=== PATIENT | male | born 1945 | race Caucasian/White ===

== ENCOUNTER 2017-01-30 14:57 | Emergency (ER) | payer OTHER ==
--- NOTE | 2017-01-30 15:31 | Diag Imaging Result Document ---
PROCEDURE NAME: HEAD/C-SPINE W/O CONTRAST - 01/30/2017 CT HEAD AND C-SPINE WITHOUT CONTRAST: COMPARISON: None available. FINDINGS: HEAD: There is no discrete intracranial mass, mass effect, or intracranial hemorrhage. There is no evidence of acute infarct given the limited sensitivity of CT versus MRI. The surrounding soft tissues are essentially unremarkable. Calvaria is intact. C-SPINE: There is degenerative disk disease at several cervical levels that is generally fairly mild. However, it is most significant at C5-6 where there is a broad-based disk osteophyte complex causing at least moderate central stenosis. There is much milder central canal narrowing and mild foraminal narrowing at a few other levels related to degenerative changes. There is no evidence of fracture, subluxation, or intrinsic osseous lesion, otherwise. Surrounding soft tissues are essentially unremarkable. IMPRESSION: 1. No evidence of acute intracranial pathology. 2. Multilevel degenerative change as described but no evidence of fracture or other definite acute C-spine injury.
--- NOTE | 2017-01-30 15:41 | ED EKG INTERP ---
EKG Interpretation - EKG Time of EKG reading by physician:: 15:11 EKG Read and Signed by:: Chris Araujo EKG Interpretation (*Must complete 3 of following elements*): Abnormal Rate: 94 Rhythm: atrial fibrillation Comments: abnormal ECG Attestation - Scribe Verification/Attestation Scribe:: Myriam Mims Acting as Scribe for:: Chris Araujo Scribe documention review:: This chart was documented by a scribe and accurately reflects the service the provider performed and the decisions made by the provider.
--- NOTE | 2017-01-30 15:44 | Diag Imaging Result Document ---
PROCEDURE NAME: CHEST-PORTABLE - 01/30/2017 SINGLE FRONTAL RADIOGRAPH OF THE CHEST: COMPARISON: None available. FINDINGS: The lungs are grossly clear. There is no discrete pleural fluid collection or evidence of pneumothorax. The cardiomediastinal silhouette and upper airway are grossly unremarkable. IMPRESSION: No evidence of acute chest pathology.
[2017-01-30 15:52] LABS: MANUAL DIFF NEEDED? NO
[2017-01-30 15:56] LABS: BASO% 0.2 % (0.0-0.8); EOS# 0.34 X1000 (0.0-0.7); EOS% 3.6 % (0.0-10.0); HEMOGLOBIN 14.6 g/dL (14.0-18.0); IMM GRAN# 0.02 X1000 (0.0-0.04); IMM GRAN% 0.2 % (0.0-0.5); LYMPH# 2.28 X1000 (1.2-3.4); LYMPH% 24.1 % (20.5-51.1); MCH 30.5 PG (27-31); MONO# 0.82 X1000 (0.11-0.59); MONO% 8.6 % (1.7-9.3); MPV 9.6 FL (7.4-10.4); NEUT% 63.3 % (42.2-75.2); PLT 332 X1000 (130-400); RBC 4.78 XMIL (4.7-6.1)
[2017-01-30 16:17] LABS: INR 1.01; PROTIME 10.7 Seconds (9.2-11.7)
[2017-01-30 16:19] LABS: URINE CULTURE NEEDED? NO; URINE MICRO REVIEW NEEDED? NO; URINE SOURCE CLEAN CATCH
[2017-01-30 16:22] LABS: AGAP 14; ALBUMIN 3.8 g/dL (3.5-5.0); ALKALINE PHOSPHATASE 92 U/L (32-122); BUN 22 mg/dL (8-22); CALCIUM 8.6 mg/dL (8.8-10.2); CHLORIDE 98 mmol/L (98-107); CK PROFILE 156 U/L (24-204); COSMO 278; GOT 19 U/L (10-34); GPT 17 U/L (10-44); POTASSIUM 4.4 mmol/L (3.5-5.1); SODIUM 136 mmol/L (136-145); TCO2 24 mmol/L (25-35); TOTAL PROTEIN 6.2 g/dL (6.3-8.3)
--- NOTE | 2017-01-30 16:34 | PROVIDER DOCUMENTATION ---
HPI-Neurological Disorder <Gil Sarmiento - Last Filed: 01/30/17 21:09> - General Source: patient, family, EMS - History of Present Illness-Neuro Onset/Duration: reports: abrupt, 1/2 hour ago Context: reports: found unresponsive by family, head injury, falling Approximate time patient was last seen normal?: 15:00 Character of Altered Mental Status: reports: unresponsive (initially after fall/ syncope) New weakness or altered sensation location:: reports: none Associated Symptoms: reports: denies symptoms Similar Symptoms Previously?: No <Kae Pelaez - Last Filed: 01/30/17 21:37> - General Chief Complaint: Head Injury Stated Complaint: POSSIBLE STROKE Time Seen by Provider: 01/30/17 14:57 Allergies/Adverse Reactions: Patient Allergies Allergy/AdvReac Type Severity Reaction Status Date / Time No Known Allergies Allergy Verified 01/30/17 15:30 Home Medications: Home Medication List Medication Instructions Recorded Confirmed Last Taken Type ATORVAstatin [Lipitor] 40 mg PO QHS 01/30/17 01/30/17 01/29/17 20:00 History Apixaban [Eliquis] 5 mg PO BID 01/30/17 01/30/17 01/30/17 08:00 History Finasteride 5 mg PO DAILY 01/30/17 01/30/17 01/30/17 08:00 History Insulin Lispro [Humalog] 60 unit SQ DAILY 01/30/17 01/30/17 01/30/17 07:00 History Lisinopril 10 mg PO DAILY 01/30/17 01/30/17 01/30/17 08:00 History Metoprolol [Lopressor] 100 mg PO DAILY 01/30/17 01/30/17 01/30/17 08:00 History NPH, Human Insulin Isophane 45 unit SQ DAILY 01/30/17 01/30/17 01/30/17 08:00 History [Humulin N] - History of Present Illness-Neuro Nature of Presenting Problem: 71 yo insulin dependent Diabetic had syncopal episode and fell and hit his head on a cabinet and was initially unresponsive. EMS called . PT was unresponsive but gradually increasing alertness. Given narcan in transport. Oriented x1 , following commands on admit to Ed Moving all extremities with good strength ( Kae Pelaez) Review of Systems - Adult - REVIEW OF SYSTEMS - ADULT Constitutional: reports: no symptoms reported Eyes: reports: no symptoms reported Ears, Nose, Mouth & Throat: reports: no symptoms reported Cardiovascular: reports: no symptoms reported Respiratory: reports: no symptoms reported Gastrointestinal: reports: no symptoms reported Genitourinary: reports: no symptoms reported <Kae Pelaez - Last Filed: 01/30/17 21:37> Past History - Adult - PAST MEDICAL HISTORY-ADULT Review of Records: reports: Old Records Reviewed, Nursing Assessment Review, Medications Reviewed Major Childhood Illnesses: reports: history unknown Cardiovascular: reports: A-Fib, HTN Respiratory: reports: denies history Gastrointestinal: reports: denies history Genitourinary: reports: denies history Musculoskeletal: reports: denies history Neurological: reports: CVA <Kae Pelaez - Last Filed: 01/30/17 21:37> Physical Exam- Neurological - Physical Exam-Neuro Initial Vital Signs Reviewed: Yes General Appearance: alert, no apparent distress, other (confused, oriented x 1 on initial evaluation, moving all 4 extremities with good strength) Eye Exam: bilateral eye: normal inspection, PERRL, EOMI HENMT: moist mucous membranes, normal ENT inspection Head Injury: other (abrasion upper occipital scalp with minimal blood) Neck: non-tender Respiratory: chest non-tender, lungs clear, normal breath sounds Cardiovascular: no edema, no gallop, no murmur, irregularly irregular Abdominal Exam: normal bowel sounds, non tender, soft, no organomegaly Lymphatic: no adenopathy Extremity: normal range of motion strip tank tender Exam: normal hearing, normal speech, PERRL Motor/Sensory: no motor deficit, no sensory deficit Neurologic: grossly normal, no motor/sensory deficits Integumentary: normal color, normal turgor, warm/dry, abrasion(s) (scalp only) Psych/Mental Status: normal mood/affect, normal thought content, normal thought process <Kae Pelaez - Last Filed: 01/30/17 21:37> Progress - REASSESSMENT Reassessment #1 Time Reassessed: 21:10 (hospitalist make us aware pt now decline admision and will sign ama) Status: improving - CONSULTS/PCP/HOSPITALIST Notification #1 *Consult/PCP/Hospitalist*: dr south Time Discussed: 08:00 Consult Disposition: Will see in ED <TorstenAyaan - Last Filed: 01/30/17 21:09> - EKG 1 Time of EKG reading by physician:: 15:30 EKG Read and Signed by:: Kae Pelaez EKG Interpretation (*Must complete 3 of following elements*): Abnormal Rate: 94 Rhythm: atrial fibrillation [place]: normal - XRAY 2 XRAY Study: Chest (no acute change) - CT/MRI 1 CT Study: Head, Neck (no intracranial acute process, no acute c spine fx) - CONSULTS/PCP/HOSPITALIST Notification #1 *Consult/PCP/Hospitalist*: Dr South Time Discussed: 18:45 Consult Disposition: Will see in ED - CHANGE OF SHIFT REPORT (ED Provider) Tentative Impression of Patient: sycope, head injury with prolonged LOC, elevated lactate <Kae Pelaez - Last Filed: 01/30/17 21:37> - PLAN OF CARE/RESULTS Progress/Plan/Lab Results: Laboratory Tests 01/30/17 01/30/17 01/30/17 15:33 15:33 15:33 WBC 9.48 RBC 4.78 Hgb 14.6 Hct 43.0 MCV 90.0 MCH 30.5 MCHC 34.0 RDW Std Deviation 12.5 Plt Count 332 MPV 9.6 Immature Gran % (Auto) 0.2 Neut % (Auto) 63.3 Lymph % (Auto) 24.1 Drew % (Auto) 8.6 Eos % (Auto) 3.6 Baso % (Auto) 0.2 Immature Gran # (Auto) 0.02 Neut # (Auto) 6.00 Lymph # (Auto) 2.28 Drew # (Auto) 0.82 H Eos # (Auto) 0.34 Baso # (Auto) 0.02 PT INR PTT (Actin FS) Sodium 136 Potassium 4.4 Chloride 98 Carbon Dioxide 24 L Anion Gap 14 BUN 22 Creatinine 0.9 Estimated GFR/1.73 m2 > 60 BUN/Creatinine Ratio 24 Glucose 143 H Calculated Osmolality 278 Calcium 8.6 L Total Bilirubin 0.40 AST 19 ALT 17 Alkaline Phosphatase 92 Creatine Kinase 156 Troponin T Total Protein 6.2 L Albumin 3.8 Globulin 2.4 Albumin/Globulin Ratio 1.6 Plasma Lactate Urine Source Urine Color Urine Turbidity Urine pH Ur Specific Ullin Urine Protein Ur Glucose (Stick) Ur Ketones (Stick) Urine Blood Urine Nitrite Urine Bilirubin Urobilinogen Dipstick Urine Leukocytes Urine WBC (Auto) Urine RBC (Auto) U Epithel Cells (Auto) Urine Bacteria (Auto) Urine Opiates Screen Ur Oxycodone Screen Ur Methadone, Qual Ur Barbiturates Screen Ur Phencyclidine Scrn Ur Amphetamines Screen U Benzodiazepines Scrn Urine Cocaine Screen U Cannabinoids Screen Plasma/Serum Ethyl Alc 01/30/17 01/30/17 01/30/17 15:33 15:33 16:05 WBC RBC Hgb Hct MCV MCH MCHC RDW Std Deviation Plt Count MPV Immature Gran % (Auto) Neut % (Auto) Lymph % (Auto) Drew % (Auto) Eos % (Auto) Baso % (Auto) Immature Gran # (Auto) Neut # (Auto) Lymph # (Auto) Drew # (Auto) Eos # (Auto) Baso # (Auto) PT 10.7 INR 1.01 PTT (Actin FS) 18.8 L Sodium Potassium Chloride Carbon Dioxide Anion Gap BUN Creatinine Estimated GFR/1.73 m2 BUN/Creatinine Ratio Glucose Calculated Osmolality Calcium Total Bilirubin AST ALT Alkaline Phosphatase Creatine Kinase Troponin T < 0.010 Total Protein Albumin Globulin Albumin/Globulin Ratio Plasma Lactate 2.9 H Urine Source Urine Color Urine Turbidity Urine pH Ur Specific Ullin Urine Protein Ur Glucose (Stick) Ur Ketones (Stick) Urine Blood Urine Nitrite Urine Bilirubin Urobilinogen Dipstick Urine Leukocytes Urine WBC (Auto) Urine RBC (Auto) U Epithel Cells (Auto) Urine Bacteria (Auto) Urine Opiates Screen Ur Oxycodone Screen Ur Methadone, Qual Ur Barbiturates Screen Ur Phencyclidine Scrn Ur Amphetamines Screen U Benzodiazepines Scrn Urine Cocaine Screen U Cannabinoids Screen Plasma/Serum Ethyl Alc 01/30/17 01/30/17 01/30/17 16:05 16:05 17:43 WBC RBC Hgb Hct MCV MCH MCHC RDW Std Deviation Plt Count MPV Immature Gran % (Auto) Neut % (Auto) Lymph % (Auto) Drew % (Auto) Eos % (Auto) Baso % (Auto) Immature Gran # (Auto) Neut # (Auto) Lymph # (Auto) Drew # (Auto) Eos # (Auto) Baso # (Auto) PT INR PTT (Actin FS) Sodium Potassium Chloride Carbon Dioxide Anion Gap BUN Creatinine Estimated GFR/1.73 m2 BUN/Creatinine Ratio Glucose Calculated Osmolality Calcium Total Bilirubin AST ALT Alkaline Phosphatase Creatine Kinase Troponin T Total Protein Albumin Globulin Albumin/Globulin Ratio Plasma Lactate 2.2 Urine Source CLEAN CATCH Urine Color YELLOW Urine Turbidity CLEAR Urine pH 6.0 Ur Specific Ullin 1.019 Urine Protein 50 A Ur Glucose (Stick) NEGATIVE Ur Ketones (Stick) TRACE A Urine Blood NEGATIVE Urine Nitrite NEGATIVE Urine Bilirubin NEGATIVE Urobilinogen Dipstick NORMAL Urine Leukocytes NEGATIVE Urine WBC (Auto) <10 Urine RBC (Auto) <10 U Epithel Cells (Auto) <10 Urine Bacteria (Auto) NEGATIVE Urine Opiates Screen NONE DETECTED Ur Oxycodone Screen NONE DETECTED Ur Methadone, Qual NONE DETECTED Ur Barbiturates Screen NONE DETECTED Ur Phencyclidine Scrn NONE DETECTED Ur Amphetamines Screen NONE DETECTED U Benzodiazepines Scrn NONE DETECTED Urine Cocaine Screen NONE DETECTED U Cannabinoids Screen NONE DETECTED Plasma/Serum Ethyl Alc Orders Category Date Time Status Blood Glucose Finger Stick [FSBS/Accucheck Result] NOW Care 01/30/17 18:53 Active Cardiac Monitoring DIRECTED Care 01/30/17 15:13 Active Finger Stick Blood Sugar (ED) DIRECTED Care 01/30/17 15:13 Active Oxygen Therapy- ED Nursing DIRECTED Care 01/30/17 15:13 Active Saline Loc NOW Care 01/30/17 15:13 Active CHEST-PORTABLE [RAD] Stat Exams 01/30/17 15:14 Completed HEAD/C-SPINE W/O CONTRAST [CT] Stat Exams 01/30/17 14:59 Completed ALCOHOL BLOOD Stat Lab 01/30/17 15:33 Completed CBC WITH ELECTRONIC DIFF [HEME] Stat Lab 01/30/17 15:33 Completed CK PROFILE [SP CHEM] Stat Lab 01/30/17 15:33 Completed COMPREHENSIVE METABOLIC PANEL [CHEM] Stat Lab 01/30/17 15:33 Completed LACTATE, PLASMA [CHEM] Stat Lab 01/30/17 16:05 Completed LACTATE, PLASMA [CHEM] Stat Lab 01/30/17 17:43 Completed PROTIME WITH INR [COAG] Stat Lab 01/30/17 15:33 Completed PTT [COAG] Stat Lab 01/30/17 15:33 Completed TROPONIN T Stat Lab 01/30/17 15:33 Completed URINALYSIS W/POSS RFLX CULT [URINALYSIS] Stat Lab 01/30/17 16:05 Completed URINE DRUG SCREEN Stat Lab 01/30/17 16:05 Completed Diphtheria/Tetanus Adult Med 01/30/17 18:53 Discontinued 0.5 ml IM .ONCE ONE Pulse Oximetry Stat Oth 01/30/17 15:13 Completed EKG [EKG] Stat Ther 01/30/17 15:13 Ordered Vital Signs Temp Pulse Resp BP Pulse Ox 01/30/17 17:59 86 20 163/109 94 L 01/30/17 15:20 98.2 F 95 H 16 143/90 95 No Known Allergies Allergy (Verified 01/30/17 15:30) ATORVAstatin [Lipitor] 40 mg PO QHS 01/30/17 Apixaban [Eliquis] 5 mg PO BID 01/30/17 Finasteride 5 mg PO DAILY 01/30/17 Insulin Lispro [Humalog] 60 unit SQ DAILY 01/30/17 Lisinopril 10 mg PO DAILY 01/30/17 Metoprolol [Lopressor] 100 mg PO DAILY 01/30/17 NPH, Human Insulin Isophane [Humulin N] 45 unit SQ DAILY 01/30/17 Laboratory 01/30/17 01/30/17 01/30/17 17:43 16:05 16:05 WBC RBC Hgb Hct MCV MCH MCHC RDW Std Deviation Plt Count MPV Immature Gran % (Auto) Neut % (Auto) Lymph % (Auto) Drew % (Auto) Eos % (Auto) Baso % (Auto) Immature Gran # (Auto) Neut # (Auto) Lymph # (Auto) Drew # (Auto) Eos # (Auto) Baso # (Auto) PT INR PTT (Actin FS) Sodium Potassium Chloride Carbon Dioxide Anion Gap BUN Creatinine Estimated GFR/1.73 m2 BUN/Creatinine Ratio Glucose Calculated Osmolality Calcium Total Bilirubin AST ALT Alkaline Phosphatase Creatine Kinase Troponin T Total Protein Albumin Globulin Albumin/Globulin Ratio Plasma Lactate 2.2 Urine Source CLEAN CATCH Urine Color YELLOW Urine Turbidity CLEAR Urine pH 6.0 Ur Specific Ullin 1.019 Urine Protein 50 A Ur Glucose (Stick) NEGATIVE Ur Ketones (Stick) TRACE A Urine Blood NEGATIVE Urine Nitrite NEGATIVE Urine Bilirubin NEGATIVE Urobilinogen Dipstick NORMAL Urine Leukocytes NEGATIVE Urine WBC (Auto) <10 Urine RBC (Auto) <10 U Epithel Cells (Auto) <10 Urine Bacteria (Auto) NEGATIVE Urine Opiates Screen NONE DETECTED Ur Oxycodone Screen NONE DETECTED Ur Methadone, Qual NONE DETECTED Ur Barbiturates Screen NONE DETECTED Ur Phencyclidine Scrn NONE DETECTED Ur Amphetamines Screen NONE DETECTED U Benzodiazepines Scrn NONE DETECTED Urine Cocaine Screen NONE DETECTED U Cannabinoids Screen NONE DETECTED Plasma/Serum Ethyl Alc 01/30/17 01/30/17 01/30/17 16:05 15:33 15:33 WBC RBC Hgb Hct MCV MCH MCHC RDW Std Deviation Plt Count MPV Immature Gran % (Auto) Neut % (Auto) Lymph % (Auto) Drew % (Auto) Eos % (Auto) Baso % (Auto) Immature Gran # (Auto) Neut # (Auto) Lymph # (Auto) Drew # (Auto) Eos # (Auto) Baso # (Auto) PT 10.7 INR 1.01 PTT (Actin FS) 18.8 L Sodium Potassium Chloride Carbon Dioxide Anion Gap BUN Creatinine Estimated GFR/1.73 m2 BUN/Creatinine Ratio Glucose Calculated Osmolality Calcium Total Bilirubin AST ALT Alkaline Phosphatase Creatine Kinase Troponin T < 0.010 Total Protein Albumin Globulin Albumin/Globulin Ratio Plasma Lactate 2.9 H Urine Source Urine Color Urine Turbidity Urine pH Ur Specific Ullin Urine Protein Ur Glucose (Stick) Ur Ketones (Stick) Urine Blood Urine Nitrite Urine Bilirubin Urobilinogen Dipstick Urine Leukocytes Urine WBC (Auto) Urine RBC (Auto) U Epithel Cells (Auto) Urine Bacteria (Auto) Urine Opiates Screen Ur Oxycodone Screen Ur Methadone, Qual Ur Barbiturates Screen Ur Phencyclidine Scrn Ur Amphetamines Screen U Benzodiazepines Scrn Urine Cocaine Screen U Cannabinoids Screen Plasma/Serum Ethyl Alc 01/30/17 01/30/17 01/30/17 15:33 15:33 15:33 WBC 9.48 RBC 4.78 Hgb 14.6 Hct 43.0 MCV 90.0 MCH 30.5 MCHC 34.0 RDW Std Deviation 12.5 Plt Count 332 MPV 9.6 Immature Gran % (Auto) 0.2 Neut % (Auto) 63.3 Lymph % (Auto) 24.1 Drew % (Auto) 8.6 Eos % (Auto) 3.6 Baso % (Auto) 0.2 Immature Gran # (Auto) 0.02 Neut # (Auto) 6.00 Lymph # (Auto) 2.28 Drew # (Auto) 0.82 H Eos # (Auto) 0.34 Baso # (Auto) 0.02 PT INR PTT (Actin FS) Sodium 136 Potassium 4.4 Chloride 98 Carbon Dioxide 24 L Anion Gap 14 BUN 22 Creatinine 0.9 Estimated GFR/1.73 m2 > 60 BUN/Creatinine Ratio 24 Glucose 143 H Calculated Osmolality 278 Calcium 8.6 L Total Bilirubin 0.40 AST 19 ALT 17 Alkaline Phosphatase 92 Creatine Kinase 156 Troponin T Total Protein 6.2 L Albumin 3.8 Globulin 2.4 Albumin/Globulin Ratio 1.6 Plasma Lactate Urine Source Urine Color Urine Turbidity Urine pH Ur Specific Ullin Urine Protein Ur Glucose (Stick) Ur Ketones (Stick) Urine Blood Urine Nitrite Urine Bilirubin Urobilinogen Dipstick Urine Leukocytes Urine WBC (Auto) Urine RBC (Auto) U Epithel Cells (Auto) Urine Bacteria (Auto) Urine Opiates Screen Ur Oxycodone Screen Ur Methadone, Qual Ur Barbiturates Screen Ur Phencyclidine Scrn Ur Amphetamines Screen U Benzodiazepines Scrn Urine Cocaine Screen U Cannabinoids Screen Plasma/Serum Ethyl Alc (Kae Pelaez) Departure - Departure Time of Disposition Order: 21:09 Certified Medical Emergency: Emergent <Gil Sarmiento - Last Filed: 01/30/17 21:09> - Departure Time of Disposition Order: 18:45 Certified Medical Emergency: Emergent <Kae Pelaez - Last Filed: 01/30/17 21:37> - Departure DIAGNOSIS: Syncope, Head injury, Atrial fibrillation, Diabetes Disposition: AGAINST MEDICAL ADVICE 07 Condition: Fair Additional Instructions: Please return to the ED if you have any new or worsening symptoms. Follow up with PCP. ED Follow Up Instructions: You have been treated by a care provider in the Emergency Department. These instructions are being provided to you so you can have an understanding of how to care for yourself upon discharge. Upon discharge from the Emergency Department, you are responsible for making arrangements for follow-up care by a physician of your choice. Take all prescribed medications as directed. Return to the Emergency Department immediately for any new or worsening symptoms. You may call the Physician Referral phone number at [phone] to obtain a list of Physicians who are taking new patients. Referrals: Ivan Solis MD [Primary Care Provider] - Instructions: Diabetes and Standards of Medical Care, Head Injury, Adult, Easy- to-Read, Discharge Against Medical Advice, Atrial Fibrillation, [id number], Syncope, [id number], Diabetes Mellitus and Food Physician Attestation
[2017-01-30 16:35] LABS: BILIRUBIN URINE NEGATIVE (NEGATIVE); BLOOD URINE NEGATIVE (NEGATIVE); COLOR YELLOW; GLUCOSE URINE NEGATIVE (NEGATIVE); LEUKOCYTES URINE NEGATIVE (NEGATIVE); NITRITE URINE NEGATIVE (NEGATIVE); PROTEIN URINE 50 mg/dL (NEGATIVE); SP GRAVITY URINE 1.019; TURBIDITY URINE CLEAR (CLEAR); UROBILINOGEN URINE NORMAL (NORMAL)
[2017-01-30 16:37] LABS: UR EPITHELIAL CELLS <10 /HPF (<10); URINE BACTERIA NEGATIVE /HPF; URINE RBC <10 /HPF (<10); URINE WBC <10 /HPF (<10)
[2017-01-30 16:52] LABS: UR AMPHETAMINES QUAL NONE DETECTED (NONE DETECT); UR BARBITUATES QUAL NONE DETECTED (NONE DETECT); UR BENZODIAZEPIN QUAL NONE DETECTED (NONE DETECT); UR CANNABINOIDS QUAL NONE DETECTED (NONE DETECT); UR COCAINE QUAL NONE DETECTED (NONE DETECT); UR METHADONE QUAL NONE DETECTED (NONE DETECT); UR OPIATES QUAL NONE DETECTED (NONE DETECT); UR OXYCODONE QUAL NONE DETECTED (NONE DETECT); UR PCP QUAL NONE DETECTED (NONE DETECT)
[2017-01-30] MEDS ORDERED: DIPHTHERIA/TETANUS ADULT IM ONE (18:53)
[2017-01-30 21:22] VITALS: BP 140/88
[2017-01-30 21:54] LABS: PTT 18.8 Seconds (22.0-36.0)
--- NOTE | 2017-01-31 06:07 | EKG Report ---
Test Performed on : 01/30/2017 3:11:24 PM Test Reason : AMS Blood Pressure : / mmHG Vent. Rate : 094 BPM Atrial Rate : 227 BPM P-R Int : 000 ms QRS Dur : 080 ms QT Int : 342 ms P-R-T Axes : 000 056 066 degrees QTc Int : 427 ms Atrial fibrillation. Abnormal ECG No previous ECGs available Unconfirmed Result
== END 2017-01-30 21:51 | disposition left against medical advice (07) ==
LOC: EDBD → ED 14:57
DX: S00.01XA Abrasion of scalp, initial encounter (principal); R55 Syncope and collapse; I48.91 Unspecified atrial fibrillation; E11.9 Type 2 diabetes mellitus without complications; R94.31 Abnormal electrocardiogram [ECG] [EKG]; R41.0 Disorientation, unspecified; I10 Essential (primary) hypertension; Z79.01 Long term (current) use of anticoagulants; Z79.899 Other long term (current) drug therapy; Z79.4 Long term (current) use of insulin; Z23 Encounter for immunization; Z86.73 Personal history of transient ischemic attack (TIA), and cerebral infarction without residual deficits; W18.30XA Fall on same level, unspecified, initial encounter; W22.09XA Striking against other stationary object, initial encounter
CPT/HCPCS: 70450; 71010; 72125; 80053; 81001; 82550; 82948; 83605; 84484; 85025; 85610; 85730; 90714; 93005; G0480; 80320; 80324; 80345; 80346; 80349; 80353; 80358; 80361; 80365; 83992

== ENCOUNTER 2017-07-24 11:50 | Inpatient (IN) ==
[2017-07-24 12:22] LABS: MANUAL DIFF NEEDED? NO
[2017-07-24 12:25] LABS: BASO% 0.2 % (0.0-0.8); EOS# 0.13 X1000 (0.0-0.7); EOS% 1.5 % (0.0-10.0); HEMATOCRIT 42.2 % (42.0-52.0); HEMOGLOBIN 14.3 g/dL (14.0-18.0); LYMPH# 3.04 X1000 (1.2-3.4); LYMPH% 35.1 % (20.5-51.1); MCH 31.3 PG (27-31); MCHC 33.9 g/dL (33-37); MCV 92.3 FL (81-99); MONO% 9.2 % (1.7-9.3); MPV 10.2 FL (7.4-10.4); PLT 239 X1000 (130-400); RBC 4.57 XMIL (4.7-6.1)
--- NOTE | 2017-07-24 12:31 | Diag Imaging Result Doc PS360 ---
CT HEAD W/O CONTRAST - 07/24/2017 INDICATION: altered mental status TECHNIQUE: A CT dose reduction protocol was used. COMPARISON: 01/30/2017 FINDINGS: There is a stable area of old encephalomalacia at the left cerebral hemisphere. No intracranial mass or hemorrhage. The skull is intact. The sinuses are clear. IMPRESSION: No acute disease or change from prior. Electronically signed by Rommel Boothe 07/24/2017 12:28 PM
[2017-07-24 12:48] LABS: AGAP 11; ALKALINE PHOSPHATASE 84 U/L (32-122); BUN 19 mg/dL (8-22); CHLORIDE 103 mmol/L (98-107); COSMO 286; GOT 25 U/L (10-34); GPT 18 U/L (10-44); POTASSIUM 4.2 mmol/L (3.5-5.1); SODIUM 143 mmol/L (136-145); TCO2 29 mmol/L (25-35); TOTAL BILIRUBIN 0.49 mg/dL (0.20-1.00); TOTAL PROTEIN 6.2 g/dL (6.3-8.3)
--- NOTE | 2017-07-24 15:53 | Diag Imaging Result Doc PS360 ---
CHEST-2 VIEWS - 07/24/2017 INDICATION: altered mental status TECHNIQUE: COMPARISON: 01/30/2017 FINDINGS: The lungs are normally expanded and clear. Heart size and mediastinal contours are normal. No pneumothorax or pleural effusion. IMPRESSION: Negative exam. Electronically signed by Rommel Boothe 07/24/2017 3:50 PM
[2017-07-24] MEDS: HUMALOG SUBQ SCH ×2 (18:28→21:45)
[2017-07-24 19:17] LABS: CK INDEX 2.3 (0.0-2.5); CK-MB 5.76 ng/mL (0.0-5.0)
[2017-07-24] MEDS ORDERED: TAMBOCOR PO SCH (21:00)
[2017-07-24] MEDS: ELIQUIS PO SCH (21:45)
[2017-07-24] MEDS: LOPRESSOR PO SCH (21:45)
[2017-07-24] MEDS: LIPITOR PO SCH (21:45)
[2017-07-24 22:08] LABS: INR 1.02; PROTIME 10.7 Seconds (9.2-11.7)
[2017-07-24] MEDS: TAMBOCOR PO SCH (22:12)
[2017-07-25 06:29] LABS: CK INDEX 1.9 (0.0-2.5); CK-MB 5.36 ng/mL (0.0-5.0)
[2017-07-25] MEDS: HUMALOG SUBQ SCH ×5 (07:02→20:22)
[2017-07-25 07:06] LABS: HEMOGLOBIN 13.8 g/dL (14.0-18.0); MCHC 33.7 g/dL (33-37); MCV 92.1 FL (81-99); MPV 10.3 FL (7.4-10.4); RBC 4.45 XMIL (4.7-6.1)
[2017-07-25 07:22] LABS: AGAP 12; ALBUMIN 3.6 g/dL (3.5-5.0); ALKALINE PHOSPHATASE 87 U/L (32-122); BUN 20 mg/dL (8-22); CALCIUM 8.1 mg/dL (8.8-10.2); CHLORIDE 100 mmol/L (98-107); COSMO 280; GOT 22 U/L (10-34); GPT 17 U/L (10-44); POTASSIUM 4.5 mmol/L (3.5-5.1); SODIUM 138 mmol/L (136-145); TCO2 26 mmol/L (25-35); TOTAL BILIRUBIN 1.14 mg/dL (0.20-1.00); TOTAL PROTEIN 6.3 g/dL (6.3-8.3)
[2017-07-25] MEDS ORDERED: LOPRESSOR PO SCH (09:00)
[2017-07-25] MEDS: LOPRESSOR PO SCH ×2 (10:13→20:22)
[2017-07-25] MEDS: PRINIVIL PO SCH (10:13)
[2017-07-25] MEDS: ELIQUIS PO SCH ×2 (10:14→20:22)
[2017-07-25] MEDS: PROSCAR PO SCH (10:14)
[2017-07-25] MEDS: TAMBOCOR PO SCH ×2 (10:14→20:23)
[2017-07-25] MEDS: LIPITOR PO SCH (20:22)
[2017-07-26] MEDS: HUMALOG SUBQ SCH ×4 (06:11→20:39)
[2017-07-26 07:01] LABS: MANUAL DIFF NEEDED? NO
[2017-07-26 07:11] LABS: BASO% 0.1 % (0.0-0.8); EOS# 0.15 X1000 (0.0-0.7); EOS% 1.7 % (0.0-10.0); HEMATOCRIT 43.9 % (42.0-52.0); LYMPH# 1.91 X1000 (1.2-3.4); LYMPH% 21.8 % (20.5-51.1); MCH 30.6 PG (27-31); MCHC 34.2 g/dL (33-37); MCV 89.6 FL (81-99); MONO# 0.61 X1000 (0.11-0.59); MPV 10.4 FL (7.4-10.4); NEUT% 69.4 % (42.2-75.2); PLT 250 X1000 (130-400)
[2017-07-26 07:33] LABS: AGAP 11; ALBUMIN 4.2 g/dL (3.5-5.0); ALKALINE PHOSPHATASE 96 U/L (32-122); BUN 25 mg/dL (8-22); CALCIUM 9.3 mg/dL (8.8-10.2); CHLORIDE 100 mmol/L (98-107); COSMO 289; GOT 24 U/L (10-34); GPT 20 U/L (10-44); IRON SATURATION 58 %; POTASSIUM 4.5 mmol/L (3.5-5.1); SODIUM 137 mmol/L (136-145); TCO2 26 mmol/L (25-35); TIBC 257 ug/dL; TOTAL BILIRUBIN 1.32 mg/dL (0.20-1.00); TOTAL IRON 150 ug/dL (53-167); TOTAL PROTEIN 6.4 g/dL (6.3-8.3); UNBOUND IRON 107 ug/dL (112-346)
[2017-07-26 07:53] LABS: FERRITIN 192 ng/mL (30-400)
[2017-07-26] MEDS ORDERED: HUMULIN N SUBQ SCH (09:00)
--- NOTE | 2017-07-26 09:05 | Diag Imaging Result Doc PS360 ---
EXAM: MRI BRAIN W W/O CONTRAST - 07/26/2017 HISTORY: stroke TECHNIQUE: Without and with contrast COMPARISON: CT head of 07/24/2017 FINDINGS: There are areas of encephalomalacia and gliosis compatible with old infarcts at the posterior temporal lobe and posterior parietal lobe on the left. The diffusion weighted images show no areas of restricted diffusion (no evidence of acute infarct). There is no evidence of hemorrhage, mass effect, midline shift, or hydrocephalus. There is mild ventricular asymmetry compatible with normal variation. There is no abnormal enhancement identified. 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 No visible acute intracranial abnormality. Electronically signed by Harry Solis 07/26/2017 9:02 AM
[2017-07-26] MEDS: ELIQUIS PO SCH ×2 (09:07→20:26)
[2017-07-26] MEDS: LOPRESSOR PO SCH ×2 (09:07→20:28)
[2017-07-26] MEDS: TAMBOCOR PO SCH ×2 (09:07→20:28)
[2017-07-26] MEDS: PROSCAR PO SCH (09:07)
[2017-07-26] MEDS: PRINIVIL PO SCH (09:07)
--- NOTE | 2017-07-26 09:13 | Diag Imaging Result Doc PS360 ---
EXAM: MRA BRAIN W/O CONTRAST - 07/25/2017 HISTORY: R/O stroke TECHNIQUE: Without contrast. [id number] MR angiogram of the intracranial circulation with reconstructed 3-D rotating MIP images obtained. COMPARISON: None. 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 The A2 segment of the right anterior cerebral artery appears to receive most of its supply from the left. The anterior communicating artery. The A2 segment right anterior cerebral artery is generally small in caliber beyond its proximal portion. There is no other major intracranial arterial occlusion identified. There is a questionable tiny (2 mm) aneurysm arising at the proximal A2 segment left anterior cerebral artery, but this could be artifactual related tortuosity. There is no large aneurysm identified. 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 The A2 segment right anterior cerebral artery is generally small in caliber along its proximal portion. Questionable tiny (2 mm) aneurysm arising at proximal A2 segment left anterior cerebral artery versus artifact from tortuosity. Electronically signed by Harry Solis 07/26/2017 9:11 AM
--- NOTE | 2017-07-26 09:15 | Diag Imaging Result Doc PS360 ---
EXAM: MRA NECK W/CONT - 07/25/2017 HISTORY: R/O stroke TECHNIQUE: With contrast. Coronal and reconstructed 3-D rotating MIP images of the carotid circulation in the neck are obtained. COMPARISON: None. FINDINGS: There is no carotid stenosis identified on the right. There is no carotid stenosis identified on the left. The bilateral vertebral arteries are patent. IMPRESSION: No evidence of carotid stenosis on the right nor the left. Electronically signed by Harry Solis 07/26/2017 9:13 AM
[2017-07-26] MEDS: KEPPRA PO SCH ×2 (11:51→20:28)
[2017-07-26] MEDS ORDERED: INSULIN PEN NEEDLES ONE (15:08)
[2017-07-26] MEDS: LIPITOR PO SCH (20:26)
[2017-07-26] MEDS ORDERED: LANTUS SUBQ SCH (21:00)
[2017-07-27] MEDS: HUMALOG SUBQ SCH ×4 (06:19→15:46)
[2017-07-27 07:50] LABS: AGAP 13; BUN 26 mg/dL (8-22); CALCIUM 8.8 mg/dL (8.8-10.2); CHLORIDE 102 mmol/L (98-107); COSMO 281; POTASSIUM 4.5 mmol/L (3.5-5.1); SODIUM 137 mmol/L (136-145); TCO2 22 mmol/L (25-35)
[2017-07-27] MEDS: KEPPRA PO SCH (08:44)
[2017-07-27] MEDS: PROSCAR PO SCH (08:44)
[2017-07-27] MEDS: TAMBOCOR PO SCH (08:44)
[2017-07-27] MEDS: ELIQUIS PO SCH (08:44)
[2017-07-27] MEDS: PRINIVIL PO SCH (08:44)
[2017-07-27] MEDS: LOPRESSOR PO SCH (08:44)
[2017-07-27 15:48] VITALS: BP 142/80
--- NOTE | 2017-07-27 15:50 | Diag Imaging Result Doc PS360 ---
CT ANGIOGRAM/HEAD - 07/27/2017 INDICATION: suspected aneurysm from mri report TECHNIQUE: Axial CT images were obtained after administering intravenous contrast. Three-dimensional angiographic images were generated. A CT dose reduction protocol was used. COMPARISON: Brain MR angiogram 07/26/2017 FINDINGS: The exam is normal. All the intracranial vessels are patent and of normal caliber. The abnormality on the prior MRI was an artifact from tortuous arteries. IMPRESSION: Negative exam. Electronically signed by Rommel Boothe 07/27/2017 3:48 PM
== END 2017-07-27 18:53 | disposition home or self-care (01) ==
LOC: ED 11:50 → 3N 16:27 → SUATTDRO 16:27
PROVIDERS: ATTEND Internal Medicine